=== PATIENT | male | born 1950 | race Caucasian/White ===

== ENCOUNTER 2017-06-16 14:10 | Day surgery (SDC) | payer BC, OTHER ==
[~2017-06-16] VITALS: Ht 172.7 cm; Wt 81.9 kg
[2017-06-16] VITALS (9 sets, daily range): BP systolic 117–155; BP diastolic 69–82; PULSE 52–65; RESP 9–16; Ht 172.7 cm; Wt 81.9 kg
[~2017-06-16 14:10] MED LIST: BACTDS PO; CEPH-443 PO; LACTATED RINGER'S 1,000 ML IV* SCH
--- NOTE | 2017-06-16 14:40 | HPN ---
Date/Time of Note Date/Time of Note DATE: 06/16/17 TIME: 14:39 Interval H&P Admission Note Pt. seen H&P reviewed: No system changes BRIAN PABLO Jun 16, 2017 14:40
[2017-06-16] MEDS ORDERED: METF1000 PO (15:24)
[2017-06-16] MEDS ORDERED: ATOR80TA75 PO (15:24)
[2017-06-16] MEDS ORDERED: LISI-313 PO (15:24)
[2017-06-16] MEDS ORDERED: NOVMIX SC (15:24)
[2017-06-16] MEDS ORDERED: GABA300C16 PO (15:24)
[2017-06-16] MEDS ORDERED: PROPOFOL 20 ML ONE (15:49)
[2017-06-16] MEDS ORDERED: LIDOCAINE 2% (SDV) 5 ML INJ ONE (15:49)
[2017-06-16] MEDS ORDERED: ROCURONIUM 50 MG INJ ONE ×2 (15:49→17:15)
[2017-06-16] MEDS ORDERED: BUPIVACAINE 0.25% (MPF) 30 ML INJ ONE (15:51)
[2017-06-16] MEDS ORDERED: LIDOCAINE 1% (MPF) 30 ML INJ ONE (15:51)
[2017-06-16] MEDS ORDERED: METOCLOPRAMIDE 10 MG INJ IV PRN (16:00)
[2017-06-16] MEDS ORDERED: OXYCODONE/ACETAMINOPHEN (5/325) TAB PO PRN ×2 (16:00)
[2017-06-16] MEDS ORDERED: INSULIN ASPART [NOVOLOG] 3 ML PEN SC ONE (16:00)
[2017-06-16] MEDS ORDERED: ONDANSETRON 4 MG INJ IV PRN (16:00)
[2017-06-16] MEDS ORDERED: FENTAnyl 50 MCG/ML VIAL IV PRN ×3 (16:00)
[2017-06-16] MEDS ORDERED: DIPHENHYDRAMINE 50 MG INJ IV PRN (16:00)
[2017-06-16] MEDS ORDERED: EPHEDrine SULFATE 50 MG/5 ML SYG IV PRN (16:00)
[2017-06-16] MEDS ORDERED: HYDROmorphONE (0.2 MG/ML) 10ML SYG IV PRN ×3 (16:00)
[2017-06-16] MEDS ORDERED: MEPERIDINE 25 MG INJ IV PRN (16:00)
[2017-06-16] MEDS ORDERED: LABETALOL HCL 20MG INJ IV PRN (16:00)
[2017-06-16] MEDS ORDERED: hydrALAzine 20 MG INJ IV PRN (16:00)
--- NOTE | 2017-06-16 16:13 | RADRPT ---
PROCEDURE: XR Chest. CLINICAL INDICATION: Preoperative. TECHNIQUE: Two views. Frontal and lateral. COMPARISON: No prior study is available for comparison. FINDINGS: The lungs are clear. The heart size is normal. There is no pleural effusion. There is no pneumothorax. IMPRESSION: 1. Normal chest radiograph. RPTAT: QQ .Elver Acuna MD, MD Date Time Electronically viewed and signed by .Elver Acuna MD, MD on 06/16/2017 16:13 .R/
[2017-06-16] MEDS ORDERED: GLUCOSE GEL 15 GRAM TUBE BUCCAL PRN (16:30)
[2017-06-16] MEDS ORDERED: GLUCOSE GEL 15 GRAM TUBE PO PRN ×2 (16:30)
[2017-06-16] MEDS ORDERED: DEXTROSE 50% 50 ML SYRINGE IV PRN ×2 (16:30)
[2017-06-16] MEDS ORDERED: GLUCAGON 1 MG INJ IM PRN (16:30)
[2017-06-16] MEDS ORDERED: LABETALOL HCL 20MG INJ ONE (16:37)
[2017-06-16] MEDS ORDERED: CEFAZOLIN 1 GM INJ ONE (17:15)
[2017-06-16] MEDS ORDERED: GLYCOPYRROLATE 0.4 MG INJ ONE (17:15)
[2017-06-16] MEDS ORDERED: NEOSTIGMINE 3 MG/3 ML SYRINGE ONE (17:15)
[2017-06-16] MEDS ORDERED: HYDROCODONE/APAP (5/325) TAB PO PRN (18:00)
--- NOTE | 2017-06-20 20:06 | OPR ---
DATE OF OPERATION: 06/16/2017 SURGEON: Dr. Christian Ayala MD ANESTHESIA: General. PREOPERATIVE DIAGNOSES: 1. Left hand deep mass 6 cm by 4 cm. 2. Left hand Dupuytren's contracture with pretendinous cords in the left hand. POSTOPERATIVE DIAGNOSES: 1. Left hand deep mass 6 cm by 4 cm. 2. Left hand Dupuytren's contracture with pretendinous cords in the left hand. PROCEDURE PERFORMED: 1. Excision of deep mass, left hand, measuring 6 cm by 4 cm. 2. Open fasciectomy, left hand, for Dupuytren's contracture with pretendinous cord leading to the index and middle finger. OPERATIVE FINDINGS: 1. Complex fatty mass at left hand near the distal palmar crease of the index finger extending into the proximal index finger and invested within the neurovascular bundles measuring 6 cm by 4 cm. 2. Left hand Dupuytren's pretendinous cords leading to the index and middle finger. INDICATIONS FOR PROCEDURE: A 77-year-old male with left hand mass, which was increasing in size. An MRI was obtained indicating a large 6 cm by 4 cm fatty mass. The patient also had pretendinous cords at the left hand with minimal flexion contracture, but due to the proximity to the deep mass, my concern as for progression of the pretendinous cords causing flexion contracture after surgery. The cords were also quite prominent and bothersome to the patient, and the patient elected to proceed with excision of left hand deep mass as well as open fasciectomy left hand for Dupuytren's contracture. DESCRIPTION OF PROCEDURE: The patient was seen in the preoperative area and all questions were answered. Again, he gave informed consent understanding risks and benefits. The patient was taken off his splint and placed in the supine position. He was placed under general anesthesia and 2 g of Ancef given. Tourniquet was placed in the left upper extremity and left upper extremity was prepped with Iodine prep and draped in the usual sterile fashion. Esmarch bandage was used to exsanguinate the extremity and tourniquet inflated to 250 mmHg. A Ruthy type incision over the volar left hand extending from the PIPJ crease proximal to the distal palmar crease was utilized with sharp dissection and carried down through skin and subcutaneous tissue. Scissor dissection divided the soft tissues and attention was turned proximally to the Dupuytren's cord, which required extending the incision proximally to visualize the pretendinous cord. The skin was marked with marker in order to prevent thinning of the skin, and a 15 blade was used to elevate the deep dermis off of the pretendinous cord, which was adherent to the deep dermis. The dermis was elevated proximally, distally, radially, ulnarly, and the cord was directly visualized and was excised. The cord was leading to the index as well as the middle finger. Attention was then turned to excision of the left hand fatty mass and scissor dissection identified the fatty mass, which was most prevalent over the flexor sheath and A1 jillian. Part of the mass was also adherent to the deep dermis, and this was gently elevated off. The mass was completely dissected around and was deeply adherent to the ulnar and radial neurovascular bundles, which were maintained intact. The mass was delicately elevated off the neurovascular bundles using tenotomy scissors and was completely excised. The mass was sent for specimen. The wound was copiously irrigated and skin was closed with 5-0 nylon. Xeroform placed over the wound followed by sterile gauze, Webril, and a short arm radial Edel splint. Tourniquet deflated after 52 minutes and the patient was awakened from anesthesia. He was taken to the postoperative suite in stable condition and tolerated the procedure well without any complications. SPECIMENS: 1. Left hand Dupuytren's cord. 2. Left hand mass. ESTIMATED BLOOD LOSS: 5 cc. COUNTS: Sponge, instrument, and needle counts correct. TOURNIQUET TIME: 52 minutes. CONDITION ON DISCHARGE: Stable. Dictated By: Christian Ayala MD /bharati/royal /Document#: [id number] MARY
== END 2017-06-16 18:47 | disposition home or self-care (01) ==
LOC: SDS 14:10
PROVIDERS: ATTEND Orthopaedic Surgery Hand Surgery
DX: M72.0 Palmar fascial fibromatosis [Dupuytren] (principal); D17.39 Benign lipomatous neoplasm of skin and subcutaneous tissue of other sites; E11.9 Type 2 diabetes mellitus without complications
CPT/HCPCS: 11426; 26121; 71010; 82962; 88307; J0690; J1170; J2405; J2710; J3010; J1815

== ENCOUNTER 2018-04-25 13:13 | Emergency (ER) | END 2018-04-25 16:32 | disposition home or self-care (01) ==

== ENCOUNTER 2018-07-01 10:00 | Day surgery (SDC) | END 2018-07-01 19:00 | disposition home or self-care (01) ==

== ENCOUNTER 2018-07-16 14:43 | Emergency (ER) | END 2018-07-16 16:21 | disposition home or self-care (01) ==